=== PATIENT | male | born 1995 | race Caucasian/White ===

== ENCOUNTER 2023-03-29 15:45 | Emergency (ER) | payer OTHER, SELFPAY ==
[2023-03-29 16:15] VITALS: BP 155/97; PULSE 110; RESP 20; TEMP 37.5; O2SAT 96; BMI 25.8
--- NOTE | 2023-03-29 16:17 | ED_ITS ---
HPI - Nausea/Vomiting/Diarrhea General Chief complaint: Nausea/Vomiting/Diarrhea Stated complaint: throwing up 3x days, dehydrated? Related Data Allergies Allergy/AdvReac Type Severity Reaction Status Date / Time No Known Allergies Allergy Verified 03/29/23 16:18 [No Known Allergies*] PMFSH Social History Social History Advance Directives: No Advance Directives Information Provided: No Physical Exam 2 Vital Signs: Vital Signs: Last Vital Signs Temp 99.5 F 03/29/23 16:15 Pulse 110 H 03/29/23 16:15 Resp 20 03/29/23 16:15 BP 155/97 H 03/29/23 16:15 Pulse Ox 96 03/29/23 16:15 O2 Del Method Room Air 03/29/23 16:15 BMI result Body Mass Index 25.8 Course Course Course Narrative: RME: 27 yo w/no sig PMHx presenting to the ED c/o cough, N/V, epigastric abdominal pain, inability to tolerate p.o. x1 week Labs, UA, viral testing ordered Full HPI, ROS and PE to be performed by primary ED provider. Medical Decision Making Lab Data 03/29/23 16:35 03/29/23 16:35 Labs: Lab Results 03/29/23 Range/Units 16:35 WBC 9.5 (4.8-10.8) X10*3/uL RBC 5.00 (4.60-5.80) X10*6/uL Hgb 15.8 (14.0-18.0) g/dl Hct 42.1 (42.0-52.0) % MCV 84.2 (80.0-98.0) fL MCH 31.6 (27.0-33.0) pg MCHC 37.5 H (31.0-36.0) g/dl RDW 11.3 (11.0-16.0) % Plt Count 313 (160-400) X10*3/uL MPV 10.1 (9.4-12.4) fL Immature Gran % (Auto) 0.3 (0.0-0.4) % Neut % (Auto) 61.4 (45-73) % Lymph % (Auto) 27.8 (20-40) % [place] % (Auto) 9.0 (2-11) % Eos % (Auto) 1.0 (0-4) % Baso % (Auto) 0.5 (0-2) % Lymph # (Auto) 2.7 (1.2-4.9) X10*3/uL [place] # (Auto) 0.9 (0.1-1.2) X10*3/uL Eos # (Auto) 0.1 (0.0-0.4) X10*3/uL Baso # (Auto) 0.1 (0.0-0.2) X10*3/uL Abs Immat Gran (auto) 0.03 (0.00-0.03) X10*3/uL Absolute Neuts (auto) 5.8 (2.0-8.3) x10*3/uL Absolute Nucleated RBC 0.000 (0.0-0.012) X10*3/uL Nucleated RBC % (auto) 0.0 (0.0-0.2) /100WBC Sodium 138 (135-145) mmol/L Potassium 3.8 (3.3-5.1) mmol/L Chloride 101 (96-108) mmol/L Carbon Dioxide 25 (22-29) mmol/L Anion Gap 16 (12-20) BUN 13 (9-16) mg/dL Creatinine 0.96 (0.5-1.4) mg/dL Estim Creat Clear Calc 140.6 Estimated GFR > 60 Random Glucose 113 (60-115) mg/dL Calcium 9.9 (8.4-10.2) mg/dL Magnesium 1.8 (1.6-2.6) mg/dL Total Bilirubin 0.6 (0.0-1.0) mg/dL Direct Bilirubin 0.2 (0.0-0.5) mg/dL AST 36 (5-37) U/L ALT 30 (0-40) U/L Alkaline Phosphatase 50 (39-117) U/L Total Protein 7.3 (6.5-8.0) g/dL Albumin 4.5 (3.5-5.0) g/dL Lipase 16 (8-78) U/L Influenza Type A (PCR) NEGATIVE (Negative) Influenza Type B (PCR) NEGATIVE (Negative) RSV RNA Qual (PCR) NEGATIVE (Negative) SARS-CoV-2 RNA (RT-PCR) NEGATIVE (Negative) Discharge Plan Discharge Clinical Impression: Upper respiratory infection Patient Disposition: Left W/O Completing Treatment Interventions: LWBS Worksheet Last Done: 03/30/23 02:04 Discharge Date/Time: 03/30/23 02:04
== END 2023-03-30 02:04 | disposition left against medical advice (07) ==
PROVIDERS: Emergency Provider Emergency Medicine; PCP Nurse Practitioner Family
DX: J06.9 Acute upper respiratory infection, unspecified (principal); R10.13 Epigastric pain; R05.9 Cough, unspecified; Z20.822 Contact with and (suspected) exposure to COVID-19; Z20.828 Contact with and (suspected) exposure to other viral communicable diseases
CPT/HCPCS: 0241U; 80048; 80076; 83690; 83735; 85025; 99281; 99283

== ENCOUNTER 2023-11-03 02:54 | Emergency (ER) | payer OTHER, SELFPAY ==
[2023-11-03 03:00] VITALS: BP 141/89; PULSE 106; RESP 16; TEMP 36.6; O2SAT 97; BMI 27.4
[2023-11-03 05:58] VITALS: BP 137/79; PULSE 77; RESP 16; TEMP 36.4; O2SAT 99
--- NOTE | 2023-11-03 06:15 | ED_ITS ---
HPI - Skin/Abscess/Foreign Bdy General Chief complaint: Skin/Abscess/Foreign Body Stated complaint: right hand swelling following a cat bite Time Seen by Provider: 11/03/23 06:09 Source: patient Mode of arrival: ambulatory Limitations: no limitations History of Present Illness ED Provider: Dr. Ying Mulligan HPI narrative: Patient comes to the emergency room complaining of a cat bite to his right hand. Patient states that he has not endorse cat, the cat went outside and when he tried to grab the cat to bring her back into the house, the CT bit him. Patient states that his cat is up-to-date with all immunizations including rabies. Patient states that he has had multiple injuries over the last few years and has definitely had a tetanus shot in the last 5 years. Patient complaining of swelling and erythema in the dorsum of the hand that is starting to spread. Patient denies fever chills Related Data Previous Rx's ?Medication ?Instructions ?Recorded amoxicillin 500 mg-potassium 1 tab PO TID 10 days #30 tabs 11/03/23 clavulanate 125 mg tablet (Augmentin) ibuprofen 600 mg tablet 600 mg PO Q8H PRN fever or pain 11/03/23 #20 tabs Allergies Allergy/AdvReac Type Severity Reaction Status Date / Time No Known Allergies Allergy Verified 11/03/23 03:01 [No Known Allergies*] Review of Systems 2 Review of Systems: Constitutional : No Weight loss, No Fever, No Chills, No Night Sweats, No Fatigue, No Malaise ENT/Mouth : No Hearing loss, No Ear Pain, No Nasal Congestion, No Sinus Pain, No Hoarseness, No sore throat, No Rhinorrhea, No Swallowing Difficulty Eyes: No Eye Pain, No Swelling, No Redness, No Foreign Body, No Discharge, No Vision Changes Cardiovascular : No Chest Pain, No SOB, No Dyspnea on Exertion, No Orthopnea, No Edema, No Palpitations Respiratory : No Cough, No Sputum, No Wheezing, No Smoke Exposure, No Dyspnea Gastrointestinal : No Nausea, No Vomiting, No Diarrhea, No Constipation, No abdominal Pain, No Hematochezia, No Melena Genitourinary : no irregular bleeding, No Dysuria, No Urinary Frequency, No Hematuria, No Urinary Incontinence, No Urgency, No Flank Pain, No Urinary Flow Changes, No Hesitancy Musculoskeletal : No joint pain, No Myalgias, No Joint Swelling Skin : Complaining of a cat bite to the dorsum of the hand, erythema and swelling Neuro : No Weakness, No Numbness, No Paresthesias, No Loss of Consciousness, No Dizziness, No Headache Psych : No Anxiety/Panic, No Depression, No SI/HI/AH/VH, No Social Issues, Heme/Lymph: No Bruising, No Bleeding,No Lymphadenopathy Endocrine : No Polyuria, No Polydipsia, No Temperature Intolerance [facility] Social History Social History Advance Directives: No Advance Directives Information Provided: No Do you have a plan to hurt others: No Plan Physical Exam 2 Vital Signs: Vital Signs: Last Vital Signs Temp 97.5 F 11/03/23 05:58 Pulse 77 11/03/23 05:58 Resp 16 11/03/23 05:58 BP 137/79 11/03/23 05:58 Pulse Ox 99 11/03/23 05:58 O2 Del Method Room Air 11/03/23 05:58 BMI result Body Mass Index 27.4 Const: Other: Appearance: Alert. Oriented X3. No acute distress. Eyes: Pupils equal, round and reactive to light. ENT: Pharynx normal. Neck: Normal inspection. Neck supple. No lymph nodes noted. No crepitus CVS: Normal heart rate and rhythm. Pulses normal. Normal S1 and S2 Respiratory: No respiratory distress. Breath sounds normal. No Wheezing. No rales Abdomen: Soft and nontender. No rigidity. No distention. Skin: Skin warm and dry. See extremely below Extremities: No lower extremity edema. No Lacerations. No Rash. Right hand is swollen, patient is able to oppose the thumb, able to flex and extend all fingers, normal wrist movement Neuro: Oriented X 3. No motor deficit. No sensory deficit. Moving all extremities. No slurred speech. CN 2 through 12 grossly intact Psych: calm, cooperative, normal affect Medications Administered Generic Name Dose Route Start Last Admin Trade Name Freq PRN Reason Stop Dose Admin Sodium Chloride 1,000 mls @ 999 mls/hr 11/03/23 06:14 11/03/23 06:31 Ns IVCONT 11/03/23 07:14 999 mls/hr .Q1H1M ONE Administration Discontinued Medications Generic Name Dose Route Start Last Admin Trade Name Freq PRN Reason Stop Dose Admin Ampicillin Sodium/Sulbactam 100 mls @ 200 mls/hr 11/03/23 06:14 11/03/23 06:38 Sodium 3 gm/ Sodium Chloride IV 11/03/23 06:43 200 mls/hr ONCE ONE Administration Ketorolac Tromethamine 30 mg 11/03/23 06:15 11/03/23 06:32 Ketorolac Tromethamine 30 Mg/Ml Vial IVPUSH 11/03/23 06:16 30 mg ONCE ONE Administration Medical Decision Making Medical Decision Making [facility] Narrative: -patient is able to move all fingers, oppose the thumb, flex and extend all fingers. At this time, tenosynovitis is not suspected. However, patient has had a significantly swollen. Patient will be getting IV antibiotics, Unasyn , Toradol and IV fluids. -all of patient's labs pending -anticipating home discharged with Augmentin -my interpretation of labs, normal hematology, normal lactic acid, CRP slightly elevated but not significantly. -patient will be discharged we p.o. Augmentin with very careful indications to return to the emergency room if his hand does not start getting better within the next 24 hours of earlier if anything changes and gets worse. Differential Diagnosis Differential Diagnoses: The differential diagnosis associated with the presentation includes (Cellulitis, tenosynovitis, puncture wound, animal bite) Admission/Observation Consideration of admission/observation: Escalation of care including admission/observation considered (Given patient's appearance of the hand, observation has been considered) Lab Data [facility] Lab Attestation statement: I reviewed the patient's lab results. 11/03/23 06:35 11/03/23 06:35 Labs: Lab Results 11/03/23 Range/Units 06:35 WBC 9.2 (4.8-10.8) X10*3/uL RBC 4.23 L (4.60-5.80) X10*6/uL Hgb 13.0 L (14.0-18.0) g/dl Hct 36.2 L (42.0-52.0) % MCV 85.6 (80.0-98.0) fL MCH 30.7 (27.0-33.0) pg MCHC 35.9 (31.0-36.0) g/dl RDW 11.4 (11.0-16.0) % Plt Count 231 D (160-400) X10*3/uL MPV 9.8 (9.4-12.4) fL Immature Gran % (Auto) 0.4 (0.0-0.4) % Neut % (Auto) 64.6 (45-73) % Lymph % (Auto) 25.3 (20-40) % [place] % (Auto) 8.2 (2-11) % Eos % (Auto) 1.0 (0-4) % Baso % (Auto) 0.5 (0-2) % Lymph # (Auto) 2.3 (1.2-4.9) X10*3/uL [place] # (Auto) 0.8 (0.1-1.2) X10*3/uL Eos # (Auto) 0.1 (0.0-0.4) X10*3/uL Baso # (Auto) 0.1 (0.0-0.2) X10*3/uL Abs Immat Gran (auto) 0.04 H (0.00-0.03) X10*3/uL Absolute Neuts (auto) 5.9 (2.0-8.3) x10*3/uL Absolute Nucleated RBC 0.000 (0.0-0.012) X10*3/uL Nucleated RBC % (auto) 0.0 (0.0-0.2) /100WBC Hold Purple Top SEE NOTE Sodium 139 (135-145) mmol/L Potassium 3.7 (3.3-5.1) mmol/L Chloride 104 (96-108) mmol/L Carbon Dioxide 26 (22-29) mmol/L Anion Gap 13 (12-20) BUN 10 (9-16) mg/dL Creatinine 0.80 (0.5-1.4) mg/dL Estim Creat Clear Calc 168.7 Estimated GFR > 60 Random Glucose 100 (60-115) mg/dL Lactic Acid 1.8 (0.5-2.0) mmol/L Calcium 9.9 (8.4-10.2) mg/dL C-Reactive Protein 1.64 H (< or = 0.50) mg/dL Critical Care Time Critical Care Time Critical Care Time: Yes Total Critical Care Time: 30 Attestation: I have personally provided critical care time. Time includes review of lab data, radiology results, discussion with consultants, and monitoring for potential decompensation. Intervention performed as documented. Discharge Plan Discharge Clinical Impression: Cellulitis, Cat bite Patient Disposition: Home, Self-Care Instructions: Animal Bite (ED), Cellulitis (ED) Additional Instructions: Please follow-up with your primary care physician tomorrow. If you have any worsening or new symptoms, please return to the emergency room or call 911 Prescriptions: New amoxicillin-pot clavulanate [Augmentin] 500-125 mg tablet 1 tab PO TID 10 Days Qty: 30 0RF ibuprofen 600 mg tablet 600 mg PO Q8H PRN (Reason: fever or pain) Qty: 20 0RF Print Language: Indonesian
[2023-11-03] MEDS: 0.9 % Sodium Chloride 1,000 ML 999 ML IVCONT (06:31)
[2023-11-03] MEDS: Ketorolac Tromethamine 30 MG/ML VIAL IVPUSH (06:32)
[2023-11-03] MEDS: Ampicillin Sodium/Sulbactam Na 3 GM in 0.9 % Sodium Chloride 100 ML IV (06:38)
[2023-11-03 06:41] LABS: MANUAL DIFF FLAG NO
[2023-11-03 06:51] LABS: Lactic Acid 1.8 mmol/L (0.5-2.0)
[2023-11-03 06:54] LABS: Anion Gap 13 (12-20); Blood Urea Nitrogen 10 mg/dL (9-16); C Reactive Protein 1.64 mg/dL (< or = 0.50); Calcium 9.9 mg/dL (8.4-10.2); Carbon Dioxide 26 mmol/L (22-29); Chloride 104 mmol/L (96-108); Creatinine Clr Calc Pharmacy 168.7; Estimated Glomerular Filt Rate > 60; Glucose Random 100 mg/dL (60-115); Potassium 3.7 mmol/L (3.3-5.1); Sodium 139 mmol/L (135-145)
[2023-11-03 06:59] LABS: Basophils Absolute Auto 0.1 X10*3/uL (0.0-0.2); Basophils Percent Auto 0.5 % (0-2); Eosinophils Absolute Auto 0.1 X10*3/uL (0.0-0.4); Hematocrit 36.2 % (42.0-52.0); Imm Gran Abs Auto 0.04 X10*3/uL (0.00-0.03); Imm Gran Pct Auto 0.4 % (0.0-0.4); Lymphocytes Absolute Auto 2.3 X10*3/uL (1.2-4.9); Lymphocytes Percent Auto 25.3 % (20-40); Mean Corpuscular HGB Conc 35.9 g/dl (31.0-36.0); Mean Corpuscular Hemoglobin 30.7 pg (27.0-33.0); Mean Corpuscular Volume 85.6 fL (80.0-98.0); Mean Platelet Volume 9.8 fL (9.4-12.4); Monocytes Absolute Auto 0.8 X10*3/uL (0.1-1.2); Monocytes Percent Auto 8.2 % (2-11); Neutrophils Absolute Auto 5.9 x10*3/uL (2.0-8.3); Neutrophils Percent Auto 64.6 % (45-73); Platelet Count 231 X10*3/uL (160-400); Red Blood Count 4.23 X10*6/uL (4.60-5.80); Red Cell Distribution Width 11.4 % (11.0-16.0); White Blood Count 9.2 X10*3/uL (4.8-10.8)
[2023-11-03 07:22] VITALS: BP 132/76; PULSE 73; RESP 16; TEMP 36.6; O2SAT 98
[2023-11-03 07:27] VITALS: BP 132/76; PULSE 73; RESP 16; TEMP 36.6; O2SAT 98
[2023-11-03 07:37] LABS: Erythrocyte Sedimentation Rate 5 MM/HR (0-15)
== END 2023-11-03 07:28 | disposition home or self-care (01) ==
PROVIDERS: Emergency Provider Emergency Medicine; PCP Nurse Practitioner Family
DX: L03.113 Cellulitis of right upper limb (principal); S61.451A Open bite of right hand, initial encounter; W55.01XA Bitten by cat, initial encounter; Y93.89 Activity, other specified; Y92.008 Other place in unspecified non-institutional (private) residence as the place of occurrence of the external cause; Y99.9 Unspecified external cause status
CPT/HCPCS: 36415; 80048; 83605; 85025; 85652; 86140; 87040; 96361; 96365; 96375; 99284; J0295; J1885

== ENCOUNTER 2024-06-11 22:25 | Emergency (ER) | payer OTHER, SELFPAY ==
[2024-06-11 22:34] VITALS: BP 137/83; PULSE 104; RESP 16; TEMP 36.8; O2SAT 98; BMI 25.2
--- NOTE | 2024-06-11 23:58 | ED_ITS ---
HPI - Ear Problem General Chief complaint: Ear Problems Stated complaint: ?infected right ear Time Seen by Provider: 06/11/24 23:40 Source: patient Mode of arrival: ambulatory Limitations: no limitations History of Present Illness ED Provider: DR. Burks HPI Narrative: 28-year-old male came in for evaluation of possible right earlobe infection. Patient is s/p piercing right ear 1 month ago and he has been gradually stretching the whole, noticed redness, hotness, tenderness over the External right earlobe. No fever, no chills, no drainage. Related Data Previous Rx's ?Medication ?Instructions ?Recorded amoxicillin 500 mg-potassium 1 tab PO TID 10 days #30 tabs 11/03/23 clavulanate 125 mg tablet (Augmentin) ibuprofen 600 mg tablet 600 mg PO Q8H PRN fever or pain 11/03/23 #20 tabs doxycycline hyclate 100 mg tablet 100 mg PO BID #14 tabs 06/12/24 mupirocin 2 % topical ointment 1 appl topical TID #22 grams 06/12/24 Allergies Allergy/AdvReac Type Severity Reaction Status Date / Time No Known Allergies Allergy Verified 06/11/24 22:34 [No Known Allergies*] Review of Systems Review of Systems: all other systems are reviewed and are negative Constitutional: Reports as per HPI and Reports no additional constitutional complaints Eyes: Reports as per HPI and Reports no additional eye complaints Reports system reviewed and no additional complaints, except as documented Cardiovascular: Reports as per HPI and Reports no additional cardiovascular complaints Respiratory: Reports as per HPI and Reports no additional respiratory complaints Gastrointestinal: Reports as per HPI and Reports no additional gastrointestinal complaints Genitourinary: Reports no additional female genitourinary complaints Musculoskeletal: Reports no additional musculoskeletal complaints Skin/Breast: Reports system reviewed and no additional complaints, except as docu Psychiatric: Reports no additional psychiatric complaints Endocrine: Reports no additional endocrine complaints Hematologic/Lymphatic: Reports no additional hematologic/lymphatic complaints Allergic/Immunologic: Reports no additional allergic/immunologic complaints Reports system reviewed and no additional complaints, except as documented and Reports Abnormal speech present Physical Exam Vital Signs: Vital Signs: Last Vital Signs Temp 98.3 F 06/11/24 22:34 Pulse 104 H 06/11/24 22:34 Resp 16 06/11/24 22:34 BP 137/83 06/11/24 22:34 Pulse Ox 98 06/11/24 22:34 O2 Del Method Room Air 06/11/24 22:34 BMI result Body Mass Index 25.2 Vital signs have been reviewed and appear to be correct. Blood pressure elevated. Heart rate normal. Respiratory rate normal. Temperature normal. Oxygen saturation normal. Appearance: Alert. Oriented X3. No acute distress. Head: Normal external exam. Normocephalic. Atraumatic. No Tejeda signs noted. No raccoon eyes noted Eyes: PERRLA. EOMI. Conjunctiva and sclera normal. Eyelids normal. ENT: right external ear involving the right helix and pinna +erythema, +redness +hotness, +tenderness, no fluctuation, no drainage. No right TM padmini thema. Neck: Normal inspection. Neck supple. FROM. No adenopathy. Thyroid Normal. No meningeal signs. No neck mass noted. CVS: Normal heart rate and rhythm. Heart sound normal. No murmurs noted. Pulses normal throughout. Respiratory: No respiratory distress. Painless inspiration. Breath sounds normal. No wheezes/rales/rhonchi noted. Chest nontender. No accessory muscle usage noted or decreased air movement noted. Abdomen: Soft and nontender. Bowel sounds normal in all 4 quadrants. No distention noted. No organomegaly noted. No visible injury noted. Back: No CVA tenderness. Full range of motion noted. Skin: Skin warm and dry. Normal skin color. Normal skin turgor. No rashes/lesions/lacerations noted. Extremities: No lower extremity edema. Extremities exhibit normal range of motion. Extremities nontender. Neuro: Oriented X 3. Cranial nerve exam: II-XII are grossly intact No motor deficit. No sensory deficit. Reflexes normal. Course Reevaluation(s) Reevaluation #1: Right ear externa infection involving the pinna and helix, no abscess will start doxycycline and mupirocin ointment. Time: 00:13 Medical Decision Making Differential Diagnosis Differential Diagnoses: The differential diagnosis associated with the presentation includes ( right otitis media, right otitis externa, external right earlobe infection, abscess.) Admission/Observation Consideration of admission/observation: Escalation of care including admission/observation considered Discharge Plan Discharge Clinical Impression: Cellulitis of helix of right ear Patient Disposition: Home, Self-Care Instructions: Pierced Earlobe Infection (ED) Prescriptions: New doxycycline hyclate 100 mg tablet 100 mg PO BID Qty: 14 0RF mupirocin 2 % ointment 1 appl topical TID Qty: 22 0RF Rx Instructions: applied to the right earlobe 3 times a day. No Action amoxicillin-pot clavulanate [Augmentin] 500-125 mg tablet 1 tab PO TID 10 Days Qty: 30 0RF ibuprofen 600 mg tablet 600 mg PO Q8H PRN (Reason: fever or pain) Qty: 20 0RF Referrals: Jennifer Garcia [employer] [Primary Care Provider] - Print Language: Bruneian
[2024-06-12 00:06] VITALS: BP 136/89; PULSE 106; RESP 16; TEMP 37.1; O2SAT 96
[2024-06-12] MEDS: Acetaminophen 325 MG TABLET 975 MG PO (00:18)
[2024-06-12] MEDS: Doxycycline Monohydrate 100 MG CAPSULE PO (00:32)
[2024-06-12 00:36] VITALS: BP 136/89; PULSE 106; RESP 16; TEMP 37.1; O2SAT 96
== END 2024-06-12 00:37 | disposition home or self-care (01) ==
PROVIDERS: Emergency Provider Emergency Medicine; PCP Nurse Practitioner Family
DX: H60.11 Cellulitis of right external ear (principal)
CPT/HCPCS: 99283; 99284